=== PATIENT | female | born 1945 | race Caucasian/White ===

== ENCOUNTER → 2019-05-23 08:18 | Outpatient (CLI) | payer OTHER, SELFPAY ==
--- NOTE | ~2019-05-23 | MR_ITS ---
EXAMINATION: MR lumbar spine wo [facility] EXAM DATE: 05/23/2019 09:17 INDICATION: Low back pain, right leg pain and weakness. Difficulty walking. TECHNIQUE: Multi-sequential, multiplanar MR images of the lumbar spine were obtained without contrast . Sagittal T1, T2, T2 fat saturation images. Axial T2 weighted images. There is no prior study for comparison. FINDINGS: There is mild to moderate lumbar levoscoliosis. There is 4 mm anterolisthesis L2 on L3 with moderate loss of this disc height. There is 5 mm anterolisthesis L3 on L4 with moderate loss of this disc height. There is 3 mm retrolisthesis L4 on L5 with moderate to severe disc disease. There is mo derate disc disease at L5-S1. No spondylolysis suspected. There are no suspicious marrow signal abnor malities. Paraspinal soft tissue is unremarkable. Level by level evaluation: T12-L1: There is a minimal diffuse disc bulge. Facet arthropathy: Mild to moderate . Ligamentum flavum enlargement . Neural foraminal stenosis: No stenosis. Central canal stenosis: No stenosis. L1-L2: There is a mild diffuse disc bulge. Facet arthropathy: Moderate . Ligamentum flavum enlargement. Neural foraminal stenosis: Mild to moderate left. Central canal stenosis: Mild. L2-L3: There is a moderate diffuse disc bulge. Facet arthropathy: Severe . Ligamentum flavum enlargement. Neural foraminal stenosis: Moderate right, mild to moderate left. Central canal stenosis: Moderate to severe, nerve root crowding with minimal CSF. There is nerve root redundancy above this level. L3-L4: There is a moderate diffuse disc bulge. Facet arthropathy: Severe . Ligamentum flavum enlargement. Neural foraminal stenosis: Moderate right, mild left. Central canal stenosis: Moderate. L4-L5: There is a mild to moderate diffuse disc bulge. Facet arthropathy: Moderate. Neural foraminal stenosis: Moderate bilateral. Central canal stenosis: Mild to moderate. L5-S1: There is a mild to moderate diffuse disc bulge asymmetric to the left Facet arthropathy: Mild to moderate. Neural foraminal stenosis: Moderate left, no right. Central canal stenosis: Mild. IMPRESSION: 1. L2-3 grade 1 anterolisthesis, moderate to severe central canal stenosis with nerve root crowding, redundancy above this level. 2. Severe multilevel facet arthropathy. Reviewed, dictated and finalized at location A. [facility] IMPRESSION: 1. L2-3 grade 1 anterolisthesis, moderate to severe central canal stenosis wit h nerve root crowding, redundancy above this level. 2. Severe multilevel facet arthropathy.
== END ==
PROVIDERS: PCP Family Medicine; Visit Provider Family Medicine
DX: M70.61 Trochanteric bursitis, right hip (principal); M70.62 Trochanteric bursitis, left hip; G89.29 Other chronic pain; M46.1 Sacroiliitis, not elsewhere classified
CPT/HCPCS: 72148